=== PATIENT | female | born 1995 | race Caucasian/White ===

== ENCOUNTER 2021-01-28 20:23 | Emergency (ER) | payer MEDICAID ==
[~2021-01-28] VITALS: Ht 165.1 cm; Wt 81.8 kg
[2021-01-28 20:33] VITALS: BP 125/80
[2021-01-28] MEDS ORDERED: IBUPROFEN 600 MG TABLET PO ONE (21:15)
== END 2021-01-28 21:35 | disposition home or self-care (01) ==
LOC: EMS 20:26
DX: S01.01XA Laceration without foreign body of scalp, initial encounter (principal); F17.210 Nicotine dependence, cigarettes, uncomplicated; Y04.2XXA Assault by strike against or bumped into by another person, initial encounter; Y93.89 Activity, other specified; Y92.89 Other specified places as the place of occurrence of the external cause; Y99.8 Other external cause status
CPT/HCPCS: 12001; 99282; 99283